=== PATIENT | female | born 1970 | race Caucasian/White ===

== ENCOUNTER 2024-08-10 09:53 | Emergency (ER) | payer OTHER ==
[~2024-08-10] VITALS: Ht 162.6 cm; Wt 54.5 kg
[2024-08-10 09:57] VITALS: BP 154/84; PULSE 100; RESP 18; TEMP 97.9; O2SAT 99
[2024-08-10 10:20] LABS: PH,URINE DRUG SCREEN 5.5 (5.0-8.0)
[2024-08-10 10:28] LABS: ALCOHOL, URINE DRUG SCREEN NEGATIVE (NEGATIVE); AMPHET/METH SCREEN,URINE NEGATIVE (NEGATIVE); BARBITURATE SCREEN, URINE NEGATIVE (NEGATIVE); BENZODIAZEPINES SCREEN,URINE NEGATIVE (NEGATIVE); CANNABINOID SCREEN,URINE NEGATIVE (NEGATIVE); COCAINE SCREEN,URINE NEGATIVE (NEGATIVE); METHADONE SCREEN, URINE NEGATIVE (NEGATIVE); OPIATE SCREEN,URINE NEGATIVE (NEGATIVE); PHENCYCLIDINE SCREEN,URINE NEGATIVE (NEGATIVE)
[2024-08-10 10:47] LABS: BASOPHILS % (AUTO) 0.9 % (0.0-2.0); EOSINOPHILS % (AUTO) 0.3 % (1.0-6.0); HEMATOCRIT 43.4 % (36-46); HEMOGLOBIN 14.4 g/dL (12.0-16.0); LYMPHOCYTES % (AUTO) 15.5 % (22.0-44.0); MEAN CORPUSCULAR HEMOGLOBIN 29.7 pg (26.0-34.0); MEAN CORPUSCULAR HGB CONC 33.3 G/dL (31.0-37.0); MEAN CORPUSCULAR VOLUME 89 fL (80-100); MONOCYTES # (AUTO) 0.4 K/uL (0.1-1.0); MONOCYTES % (AUTO) 6.8 % (2.0-9.0); NEUTROPHILS # (AUTO) 4.9 K/uL (1.8-7.7); NEUTROPHILS % (AUTO) 76.5 % (40.0-70.0); PLATELET COUNT (AUTO) 287 K/uL (150-450); RED BLOOD CELL COUNT(AUTO) 4.87 MIL/uL (4.00-5.20); RED CELL DISTRIBUTION WIDTH 12.9 % (11.5-14.5); WHITE BLOOD COUNT (AUTO) 6.3 K/uL (4.5-11.0)
[2024-08-10 10:55] LABS: ANION GAP 11 mmol/L (8-16); CALCIUM, TOTAL 9.4 mg/dL (8.8-10.5); CARBON DIOXIDE 27 mmol/L (22-29); CHLORIDE 103 mmol/L (98-107); CREATININE 0.89 mg/dL (0.60-1.30); GLOMERULAR FILTR. RATE CALC > 60 mL/min (>60); GLUCOSE,RANDOM 108 mg/dL (70-110); POTASSIUM 3.6 mmol/L (3.5-5.1); SODIUM SERUM 141 mmol/L (136-145); UREA NITROGEN, BLOOD 10 mg/dL (7-18)
== END 2024-08-10 11:04 | disposition home or self-care (01) ==
LOC: EMS 09:56
DX: R53.83 Other fatigue (principal); F41.9 Anxiety disorder, unspecified; Z85.3 Personal history of malignant neoplasm of breast
CPT/HCPCS: 80048; 80307; 85025; 99283

== ENCOUNTER 2024-08-16 05:41 | Emergency (ER) | payer MEDICAID ==
[~2024-08-16] VITALS: Ht 165.1 cm; Wt 65.9 kg
[2024-08-16 05:54] VITALS: BP 132/60; PULSE 91; RESP 20; TEMP 98.3; O2SAT 97
[2024-08-16 06:26] LABS: BASOPHILS % (AUTO) 0.9 % (0.0-2.0); EOSINOPHILS % (AUTO) 2.3 % (1.0-6.0); HEMOGLOBIN 14.2 g/dL (12.0-16.0); LYMPHOCYTES # (AUTO) 1.6 K/uL (1.0-4.8); LYMPHOCYTES % (AUTO) 27.5 % (22.0-44.0); MEAN CORPUSCULAR HEMOGLOBIN 29.9 pg (26.0-34.0); MEAN CORPUSCULAR HGB CONC 33.1 G/dL (31.0-37.0); MEAN CORPUSCULAR VOLUME 90 fL (80-100); MONOCYTES # (AUTO) 0.5 K/uL (0.1-1.0); MONOCYTES % (AUTO) 9.5 % (2.0-9.0); NEUTROPHILS # (AUTO) 3.4 K/uL (1.8-7.7); NEUTROPHILS % (AUTO) 59.8 % (40.0-70.0); PLATELET COUNT (AUTO) 284 K/uL (150-450); RED BLOOD CELL COUNT(AUTO) 4.76 MIL/uL (4.00-5.20); RED CELL DISTRIBUTION WIDTH 13.9 % (11.5-14.5); WHITE BLOOD COUNT (AUTO) 5.7 K/uL (4.5-11.0)
[2024-08-16 06:37] LABS: ANION GAP 4 mmol/L (8-16); CALCIUM, TOTAL 9.8 mg/dL (8.8-10.5); CARBON DIOXIDE 31 mmol/L (22-29); CHLORIDE 106 mmol/L (98-107); CREATININE 1.04 mg/dL (0.60-1.30); GLOMERULAR FILTR. RATE CALC 55 mL/min (>60); GLUCOSE,RANDOM 121 mg/dL (70-110); POTASSIUM 3.7 mmol/L (3.5-5.1); SODIUM SERUM 141 mmol/L (136-145); UREA NITROGEN, BLOOD 15 mg/dL (7-18)
[2024-08-16 06:42] LABS: BILIRUBIN,DIRECT 0.2 mg/dL (0.00-0.20); BILIRUBIN,TOTAL 0.5 mg/dL (0.1-1.0)
[2024-08-16 06:46] LABS: ALCOHOL, BLOOD (SERUM) < 3 mg/dL (0-10)
[2024-08-16 06:53] LABS: COVID AG,FIA SOURCE NASAL SWAB
[2024-08-16 06:57] LABS: APPEARANCE,URINE HAZY (CLEAR); BILIRUBIN,URINE NEGATIVE (NEGATIVE); COLOR,URINE YELLOW (YELLOW); GLUCOSE, URINE (UA) NEGATIVE (NEGATIVE); KETONES,URINE TRACE mg/dL (NEGATIVE); LEUKOCYTE ESTERASE ,URINE LARGE (NEGATIVE); NITRATE,URINE NEGATIVE (NEGATIVE); OCCULT BLOOD,URINE SMALL (NEGATIVE); PH,URINE 5.5 (5.0-8.0); PH,URINE DRUG SCREEN 5.5 (5.0-8.0); PROTEIN,URINE 30-70 mg/dL (NEGATIVE); SPECIFIC GRAVITIY, URINE 1.031 (1.003-1.030); UROBILINOGEN,URINE <=1.0 mg/dL (<=1.0)
[2024-08-16 07:11] LABS: BACTERIA,URINE Moderate /HPF (None Seen); SQUAMOUS EPITHELIAL CELL,UR Moderate /LPF (None Seen)
[2024-08-16] MEDS: LIDOCAINE/PF 1% 2 ML VIAL IM ONE (07:13)
[2024-08-16] MEDS: DOXYCYCLINE HYCLATE 100 MG TABLET PO ONE (07:13)
[2024-08-16] MEDS: CefTRIAXone SODIUM 1 GM/VIAL IM ONE (07:13)
[2024-08-16 07:16] LABS: CALCIUM OXALATE CRYSTALS,UR Moderate /LPF (None Seen)
[2024-08-16 07:19] LABS: ALCOHOL, URINE DRUG SCREEN NEGATIVE (NEGATIVE); AMPHET/METH SCREEN,URINE NEGATIVE (NEGATIVE); BARBITURATE SCREEN, URINE NEGATIVE (NEGATIVE); BENZODIAZEPINES SCREEN,URINE NEGATIVE (NEGATIVE); CANNABINOID SCREEN,URINE NEGATIVE (NEGATIVE); COCAINE SCREEN,URINE NEGATIVE (NEGATIVE); METHADONE SCREEN, URINE NEGATIVE (NEGATIVE); OPIATE SCREEN,URINE NEGATIVE (NEGATIVE); PHENCYCLIDINE SCREEN,URINE NEGATIVE (NEGATIVE)
[2024-08-16 07:39] LABS: SARS-COV2 (COVID) ANTIGEN,FIA Negative (Negative)
[2024-08-18] MEDS ORDERED: OLAN5TAB30 PO (10:56)
[2024-08-18] MEDS ORDERED: DOXY50 PO (12:16)
[2024-08-18] MEDS ORDERED: CEPH-558 PO (12:20)
== END 2024-08-16 11:01 ==
LOC: EMS 05:42
DX: Z00.8 Encounter for other general examination (principal); R45.851 Suicidal ideations; N89.8 Other specified noninflammatory disorders of vagina; N39.0 Urinary tract infection, site not specified; Z20.822 Contact with and (suspected) exposure to COVID-19
CPT/HCPCS: 99285; 87426; 80048; 80076; 81001; 84703; 85025; 87086; 87210; 36415; 87491; 87591; 80307; G0480; 81003

== ENCOUNTER 2024-08-19 17:46 | Inpatient (IN) | payer MEDICAID ==
[~2024-08-19] VITALS: Ht 162.6 cm; Wt 59.4 kg
[2024-08-19 17:00] VITALS: BP 154/77; PULSE 92; RESP 18; TEMP 98; O2SAT 97
[~2024-08-19 17:46] MED LIST: CEPH-558 PO; DOXY50 PO; OLAN5TAB30 PO
[2024-08-19] MEDS ORDERED: LORazepam 2 MG TABLET PO PRN (20:15)
[2024-08-19] MEDS ORDERED: HALOPERIDOL 5 MG TABLET PO PRN (20:15)
[2024-08-19] MEDS ORDERED: ZOLPIDEM TARTRATE 10 MG TABLET PO PRN (20:15)
[2024-08-19 21:00] LABS: GLUCOMETER DEV NAME(LOC) POC.BV; POC SARS-COV2 AG, FIA NEGATIVE (NEGATIVE)
[2024-08-20 00:02] VITALS: BP 154/82; PULSE 94; RESP 18; TEMP 98.2; O2SAT 96
[2024-08-20 08:13] VITALS: RESP 18
[2024-08-20] MEDS: OLANZapine 5 MG RAPDIS TABLET PO SCH (10:15)
[2024-08-20] MEDS ORDERED: LOPERAMIDE HCL 2 MG CAPSULE PO PRN (19:30)
[2024-08-20] MEDS ORDERED: ONDANSETRON 4 MG TABLET PO PRN (19:30)
[2024-08-20] MEDS ORDERED: OMEPRAZOLE 20 MG CAPSULE PO PRN (19:30)
[2024-08-20] MEDS ORDERED: IBUPROFEN 600 MG TABLET PO PRN (19:30)
[2024-08-20] MEDS ORDERED: DOCUSATE SODIUM 100 MG CAPSULE PO PRN (19:30)
[2024-08-20] MEDS ORDERED: CloNIDine HCL 0.1 MG TABLET PO PRN (19:30)
[2024-08-20] MEDS ORDERED: ALBUTEROL SULFATE HFA 90 MCG/PUFF 8 GM INHALER IH PRN (19:30)
[2024-08-20] MEDS ORDERED: MAGNESIUM HYDROXIDE SUSPENSION 30 ML UDCUP PO PRN (19:30)
[2024-08-20] MEDS ORDERED: BENZOCAINE/MENTHOL [CEPACOL] LOZENGE PO PRN (19:30)
[2024-08-20] MEDS ORDERED: MAG HYDROX/ALUMINUM HYD/SIMETH ES 30 ML SUSPENSION UDCUP PO PRN (19:30)
[2024-08-20] MEDS ORDERED: BACITRACIN 28 GM OINTMENT TP PRN (19:30)
[2024-08-20] MEDS ORDERED: ACETAMINOPHEN 325 MG TABLET PO PRN (19:30)
[2024-08-20 20:40] VITALS: RESP 16
[2024-08-20 20:43] VITALS: BP 121/59; PULSE 90; RESP 16; TEMP 97; O2SAT 98
[2024-08-21 08:54] LABS: BASOPHILS % (AUTO) 0.9 % (0.0-2.0); EOSINOPHILS % (AUTO) 1.5 % (1.0-6.0); HEMATOCRIT 42.6 % (36-46); HEMOGLOBIN 14.1 g/dL (12.0-16.0); LYMPHOCYTES # (AUTO) 1.5 K/uL (1.0-4.8); LYMPHOCYTES % (AUTO) 25.4 % (22.0-44.0); MEAN CORPUSCULAR HEMOGLOBIN 29.7 pg (26.0-34.0); MEAN CORPUSCULAR VOLUME 90 fL (80-100); MONOCYTES # (AUTO) 0.6 K/uL (0.1-1.0); MONOCYTES % (AUTO) 9.8 % (2.0-9.0); NEUTROPHILS # (AUTO) 3.7 K/uL (1.8-7.7); NEUTROPHILS % (AUTO) 62.4 % (40.0-70.0); PLATELET COUNT (AUTO) 271 K/uL (150-450); RED BLOOD CELL COUNT(AUTO) 4.73 MIL/uL (4.00-5.20); RED CELL DISTRIBUTION WIDTH 13.4 % (11.5-14.5)
[2024-08-21 09:45] VITALS: BP 140/68; PULSE 99; RESP 18; TEMP 97.8; O2SAT 99
[2024-08-21 22:26] VITALS: BP 135/71; PULSE 85; RESP 18; TEMP 98.5; O2SAT 99
[2024-08-22 08:21] VITALS: BP 140/72; PULSE 98; RESP 16; TEMP 97.2; O2SAT 98
[2024-08-22] MEDS: PETROLATUM,WHITE 28 GM JELLY TP PRN (14:20)
[2024-08-22 20:19] VITALS: BP 127/66; PULSE 80; RESP 18; TEMP 97.7; O2SAT 98
[2024-08-23 08:22] VITALS: BP 115/66; PULSE 88; RESP 16; TEMP 97.9; O2SAT 98
[2024-08-23 09:44] LABS: APPEARANCE,URINE CLEAR (CLEAR); BILIRUBIN,URINE NEGATIVE (NEGATIVE); COLOR,URINE LIGHT YELLOW (YELLOW); GLUCOSE, URINE (UA) NEGATIVE (NEGATIVE); KETONES,URINE NEGATIVE (NEGATIVE); LEUKOCYTE ESTERASE ,URINE TRACE (NEGATIVE); NITRATE,URINE NEGATIVE (NEGATIVE); OCCULT BLOOD,URINE SMALL (NEGATIVE); PH,URINE 6.5 (5.0-8.0); PH,URINE DRUG SCREEN 6.5 (5.0-8.0); PROTEIN,URINE NEGATIVE (NEGATIVE); SPECIFIC GRAVITIY, URINE 1.023 (1.003-1.030); UROBILINOGEN,URINE <=1.0 mg/dL (<=1.0)
[2024-08-23 09:52] LABS: AMPHET/METH SCREEN,URINE NEGATIVE (NEGATIVE); BARBITURATE SCREEN, URINE NEGATIVE (NEGATIVE); BENZODIAZEPINES SCREEN,URINE NEGATIVE (NEGATIVE); CANNABINOID SCREEN,URINE NEGATIVE (NEGATIVE); COCAINE SCREEN,URINE NEGATIVE (NEGATIVE); METHADONE SCREEN, URINE NEGATIVE (NEGATIVE); OPIATE SCREEN,URINE NEGATIVE (NEGATIVE); PHENCYCLIDINE SCREEN,URINE NEGATIVE (NEGATIVE)
[2024-08-23 09:53] LABS: BACTERIA,URINE None Seen /HPF (None Seen); CALCIUM OXALATE CRYSTALS,UR Few /LPF (None Seen); WBC,URINE 0-2 /HPF (0-5)
[2024-08-23 10:03] LABS: ALCOHOL, URINE DRUG SCREEN NEGATIVE (NEGATIVE)
[2024-08-23 20:17] VITALS: BP 131/42; PULSE 85; RESP 18; TEMP 97.6; O2SAT 99
[2024-08-23] MEDS: RisperiDONE 1 MG TABLET PO SCH (20:40)
[2024-08-24 08:34] VITALS: BP 130/62; PULSE 100; RESP 16; TEMP 97.6; O2SAT 98
[2024-08-24 20:24] VITALS: BP 128/60; PULSE 89; RESP 18; TEMP 97.6; O2SAT 99
[2024-08-25 08:10] VITALS: BP 126/65; PULSE 89; RESP 17; TEMP 98.3; O2SAT 97
[2024-08-25 20:00] VITALS: BP 138/90; PULSE 91; RESP 17; TEMP 97.7; O2SAT 100
[2024-08-26 10:29] VITALS: BP 92/61; PULSE 79; RESP 16; TEMP 97.1; O2SAT 99
[2024-08-26 20:06] LABS: GLUCOMETER DEV NAME(LOC) POC.BV; POC SARS-COV2 AG, FIA NEGATIVE (NEGATIVE)
[2024-08-26 20:25] VITALS: BP 125/65; PULSE 83; RESP 18; TEMP 98.7; O2SAT 99
[2024-08-27 08:27] VITALS: BP 108/66; PULSE 68; RESP 16; TEMP 97.6; O2SAT 96
[2024-08-27] MEDS ORDERED: RISP-31 PO (08:55)
== END 2024-08-27 16:00 | disposition home or self-care (01) | DRG 750 ==
LOC: B3A 20:05
PROVIDERS: ADMIT Psychiatry & Neurology Psychiatry; ATTEND Psychiatry & Neurology Psychiatry
PROC: GZHZZZZ Group Psychotherapy (ICD-10-PCS; principal; 2024-08-20)
PROC: GZ52ZZZ Individual Psychotherapy, Cognitive (ICD-10-PCS; 2024-08-20)
DX: F25.1 Schizoaffective disorder, depressive type (principal); C50.919 Malignant neoplasm of unspecified site of unspecified female breast; Z20.822 Contact with and (suspected) exposure to COVID-19; F41.9 Anxiety disorder, unspecified; G47.00 Insomnia, unspecified; I10 Essential (primary) hypertension; K59.00 Constipation, unspecified; K21.9 Gastro-esophageal reflux disease without esophagitis; R45.86 Emotional lability
CPT/HCPCS: 80307; 81001; 85025; 87081